=== PATIENT | female | born 1975 | race Two or more races ===

== ENCOUNTER → 2017-01-08 | Outpatient (CLI) | payer OTHER | END | disposition home or self-care (01) | LOC: LAB 08:51 | PROVIDERS: ATTEND Nurse Practitioner Primary Care | DX: Z13.220 Encounter for screening for lipoid disorders (principal); Z12.4 Encounter for screening for malignant neoplasm of cervix; Z12.39 Encounter for other screening for malignant neoplasm of breast; Z12.11 Encounter for screening for malignant neoplasm of colon; R53.83 Other fatigue; M54.42 Lumbago with sciatica, left side; E55.9 Vitamin D deficiency, unspecified; F06.4 Anxiety disorder due to known physiological condition; R31.9 Hematuria, unspecified; E66.9 Obesity, unspecified; Z78.9 Other specified health status; Z83.3 Family history of diabetes mellitus | CPT/HCPCS: 36415; 80061; 81001 ==

== ENCOUNTER → 2017-04-10 | Outpatient (CLI) | payer OTHER | END | disposition home or self-care (01) | LOC: CFH 07:41 | PROVIDERS: ATTEND Nurse Practitioner Primary Care | DX: Z12.31 Encounter for screening mammogram for malignant neoplasm of breast (principal) | CPT/HCPCS: 77063; G0202 ==

== ENCOUNTER → 2017-10-09 | Outpatient (CLI) | payer OTHER ==
[2017-10-09 08:17] LABS: BASOPHILS # (AUTO) 0.04 x10^3/uL (0-0.1); BASOPHILS % (AUTO) 1 % (0-1); EOSINOPHILS % (AUTO) 2 % (1-7); LYMPHOCYTES # (AUTO) 1.87 x10^3/uL (1-3.4); LYMPHOCYTES % (AUTO) 35 % (22-44); MD NO; MEAN CORPUSCULAR HEMOGLOBIN 28.6 pg (27.0-34.8); MEAN CORPUSCULAR HGB CONC 33.6 g/dL (32.4-35.8); MEAN PLATELET VOLUME 7.7 fL (7.4-10.4); MONOCYTES # (AUTO) 0.48 x10^3/uL (0.2-0.8); MONOCYTES % (AUTO) 9 % (2-9); NEUTROPHILS # (AUTO) 2.81 x10^3/uL (1.8-6.8); NEUTROPHILS % (AUTO) 53 % (42-75); PLATELET COUNT 335 x10^3/uL (130-400); RED BLOOD COUNT 4.83 x10^6/uL (3.82-5.3); RED CELL DISTRIBUTION WIDTH 13.3 % (9.6-15.2)
[2017-10-09 08:30] LABS: ALBUMIN 3.7 g/dL (3.4-5.0); ANION GAP 6 mmol/L (5-15); CALCIUM 8.7 mg/dL (8.5-10.1); CHLORIDE 109 mmol/L (98-107); CHOLESTEROL, TOTAL 213 mg/dL (140-239); TRIGLYCERIDES 130 mg/dL (50-200); VLDL CHOLESTEROL 26 mg/dL (0-25)
[2017-10-09 08:34] LABS: HEMOGLOBIN A1C 5.9 % (4.2-6.3)
[2017-10-09 08:41] LABS: CULTURE INDICATED? YES; MICROSCOPIC INDICATED
[2017-10-09 08:57] LABS: % IRON SATURATION 23 % (20-55); ALANINE AMINOTRANSFERASE 38 U/L (12-78); ALKALINE PHOSPHATASE 118 U/L (45-117); BILIRUBIN,TOTAL 0.4 mg/dL (0.2-1.0); CHOL/HDL RATIO 4.2; CREATININE 0.82 mg/dL (0.55-1.02); HDL CHOL % 24 % (28-40); HDL CHOLESTEROL (DIRECT) 51 mg/dL (40-60); IRON LEVEL 87 mcg/dL (50-170); LDL CHOLESTEROL,CALCULATED 136 mg/dL (54-169); LDL/HDL RATIO 2.7 (0.5-3.0); TOTAL IRON BINDING CAPACITY 378 mcg/dL (250-450); TOTAL PROTEIN 8.2 g/dL (6.4-8.2); TRANSFERRIN 301 mg/dL (200-360)
[2017-10-09 08:58] LABS: FOLATE LEVEL > 20.0 ng/mL (3.1-17.5)
== END ==
LOC: LAB 07:55
PROVIDERS: ATTEND Nurse Practitioner Primary Care
DX: Z13.220 Encounter for screening for lipoid disorders (principal); Z12.11 Encounter for screening for malignant neoplasm of colon; Z12.4 Encounter for screening for malignant neoplasm of cervix; E66.9 Obesity, unspecified; M54.32 Sciatica, left side; F06.4 Anxiety disorder due to known physiological condition; E55.9 Vitamin D deficiency, unspecified; R31.9 Hematuria, unspecified; R53.83 Other fatigue; Z78.9 Other specified health status; Z83.3 Family history of diabetes mellitus
CPT/HCPCS: 36415; 80053; 80061; 81001; 82306; 82607; 82728; 82746; 83036; 83540; 83550; 83735; 84207; 84425; 84443; 84466; 85025; 87086

== ENCOUNTER → 2017-11-15 | Outpatient (CLI) | payer OTHER | END | disposition home or self-care (01) | LOC: LAB 08:12 | PROVIDERS: ATTEND Obstetrics & Gynecology Gynecology | DX: N92.5 Other specified irregular menstruation (principal) | CPT/HCPCS: 36415; 82670; 83001; 83002 ==

== ENCOUNTER → 2017-11-19 | Outpatient (CLI) | payer OTHER | END | disposition home or self-care (01) | LOC: RAD 08:12 | PROVIDERS: ATTEND Nurse Practitioner Primary Care | DX: Z20.1 Contact with and (suspected) exposure to tuberculosis (principal); A15.9 Respiratory tuberculosis unspecified; M54.32 Sciatica, left side; E66.9 Obesity, unspecified; E55.9 Vitamin D deficiency, unspecified; F06.4 Anxiety disorder due to known physiological condition; Z78.9 Other specified health status; Z83.3 Family history of diabetes mellitus | CPT/HCPCS: 71046 ==